=== PATIENT | female | born 1990 | race Two or more races ===

== ENCOUNTER 2018-03-28 12:38 | Inpatient (IN) | payer MEDICAID ==
[~2018-03-28] VITALS: Ht 154.9 cm; Wt 72.6 kg
[2018-03-28 13:15] LABS: Urine Bacteria NONE SEEN /hpf (None Seen); Urine Blood Negative /uL (Negative); Urine Specific Gravity 1.013 (1.001-1.035); Urine WBC 1 /hpf (0 - 5)
[2018-03-28 13:22] LABS: Basophils # (auto) 0.1 uL; Eosinophils # (auto) 0.1 uL; Hemoglobin 7.7 g/dL (12.2-16.2); Lymphocytes # (auto) 1.9 uL; Mean Corpuscular Hemoglobin 18.6 pg (28.0-32.0); Monocytes # (auto) 0.5 uL
[2018-03-28 13:24] LABS: Eosinophils % (auto) 1.4 % (0.0-7.0); Hematocrit 25.4 % (36.0-46.0); Mean Corpuscular Hgb Conc. 30.3 g/dL (32.0-36.0); Mean Corpuscular Volume 61.5 fL (80.0-100.0); Monocytes % (auto) 6.5 % (0.0-12.0); Neutrophils % (auto) 66.1 % (37.0-80.0); Platelet Count (auto) 457 10^3/uL (140-450); Red Blood Cells 4.13 10^6/uL (4.0-5.20); Red Cell Distribution Width 19.3 % (11.8-14.3); White Blood Cell 7.5 10^3/uL (4.4-10.8)
[2018-03-28 13:54] LABS: Albumin 3.8 g/dL (3.4-5.0); Bilirubin, Total 0.2 mg/dL (0.2-1.0); Calcium 8.1 mg/dL (8.5-10.1); Potassium 3.9 mmol/L (3.5-5.1); Total Protein 7.7 g/dL (6.4-8.2)
[2018-03-28] MEDS ORDERED: SODIUM CHLORIDE 0.9% 500 ML IVB ONE (14:04)
[2018-03-28] MEDS ORDERED: ACETAMINOPHEN 500 MG TAB PO PRN (15:30)
[2018-03-28] MEDS ORDERED: HYDROcodone-ACET 5/325MG TAB PO PRN (15:30)
[2018-03-28] MEDS ORDERED: NITROGLYCERIN 0.4 MG SL TAB SL PRN (15:30)
[2018-03-28] MEDS ORDERED: TEMAZEPAM 15 MG CAP PO PRN (15:30)
[2018-03-28] MEDS ORDERED: LORazepam 0.5 MG TAB PO PRN (15:30)
[2018-03-28] MEDS ORDERED: PANTOPRAZOLE 40 MG/10 ML VIAL IV ONE (15:30)
[2018-03-28] MEDS ORDERED: MORPHINE SULF INJ 2 MG/ML SYRINGE 1ML IV PRN ×2 (15:30)
[2018-03-28] MEDS ORDERED: PROMETHAZINE HCL 25 MG/ML 1ML IV PRN (15:30)
[2018-03-28 15:37] LABS: CRP High Sensitivity 0.02 mg/dL (< 0.3)
[2018-03-28] MEDS ORDERED: CEFOTETAN 1GM/D5W 50ML BAG 50 ML IV ONE (15:45)
[2018-03-28 15:49] LABS: INR 0.96 (0.9-1.15); Prothrombin Time 10.3 sec (9.27-12.13)
[2018-03-28] MEDS: SODIUM CHLORIDE 0.9% 1,000 ML IV SCH ×2 (17:04→22:28)
[2018-03-28 19:58] LABS: Hematocrit 23.7 % (36.0-46.0); Hemoglobin 7.3 g/dL (12.2-16.2)
[2018-03-28] MEDS: PANTOPRAZOLE 40 MG TAB PO SCH (22:28)
[2018-03-29] VITALS (7 sets, daily range): BP systolic 110–129; BP diastolic 64–80
[2018-03-29 00:48] LABS: Hematocrit 23.1 % (36.0-46.0)
[2018-03-29 05:28] LABS: Basophils # (auto) 0.1 uL; Eosinophils # (auto) 0.1 uL; Hematocrit 26.5 % (36.0-46.0); Hemoglobin 8.3 g/dL (12.2-16.2); Mean Corpuscular Hemoglobin 20.2 pg (28.0-32.0); Monocytes # (auto) 0.6 uL
[2018-03-29 05:30] LABS: Basophils % (auto) 0.9 % (0.0-2.0); Eosinophils % (auto) 0.9 % (0.0-7.0); Lymphocytes % (auto) 24.1 % (10.0-50.0); Mean Corpuscular Hgb Conc. 31.3 g/dL (32.0-36.0); Mean Corpuscular Volume 64.4 fL (80.0-100.0); Neutrophils # (auto) 5.5 uL; Neutrophils % (auto) 67.1 % (37.0-80.0); Platelet Count (auto) 370 10^3/uL (140-450); Red Blood Cells 4.11 10^6/uL (4.0-5.20); White Blood Cell 8.2 10^3/uL (4.4-10.8)
[2018-03-29 05:39] LABS: Red Cell Distribution Width 21.8 % (11.8-14.3)
[2018-03-29] MEDS ORDERED: CEFOTETAN 1GM/D5W 50ML BAG 50 ML IV SCH (06:00)
[2018-03-29] MEDS: SODIUM CHLORIDE 0.9% 1,000 ML IV SCH (07:17)
[2018-03-29] MEDS: PANTOPRAZOLE 40 MG TAB PO SCH (09:12)
[2018-03-29 13:31] LABS: Hematocrit 27.6 % (36.0-46.0); Hemoglobin 8.6 g/dL (12.2-16.2)
== END 2018-03-29 14:16 | disposition home or self-care (01) | DRG 395 ==
LOC: ER 12:38 → OVERFLOW 12:39
PROVIDERS: ADMIT Internal Medicine; ATTEND Internal Medicine
PROC: 30233N1 Transfusion of Nonautologous Red Blood Cells into Peripheral Vein, Percutaneous Approach (ICD-10-PCS; principal; 2018-03-29)
DX: K64.9 Unspecified hemorrhoids (principal); D50.0 Iron deficiency anemia secondary to blood loss (chronic); K59.00 Constipation, unspecified; D64.9 Anemia, unspecified; E66.9 Obesity, unspecified
CPT/HCPCS: 36415; 36430; 74176; 80053; 81001; 82150; 82378; 83690; 85014; 85018; 85025; 85045; 85610; 85652; 85730; 86141; 86850; 86900; 86901; 86920; 94761; 96361; 96365; 96375; C9113; G0378